=== PATIENT | male | born 1935 | race Caucasian/White ===

== ENCOUNTER 2017-02-25 13:04 | Inpatient (IN) | payer OTHER ==
[~2017-02-25] VITALS: Ht 170.2 cm; Wt 65.7 kg
[2017-02-25 13:42] LABS: HEMATOCRIT 43.1 % (38.0-50.0); MCH 29.2 PG (29.0-34.0); MCHC 32.9 G/DL (30.0-36.0); MCV 88.5 FL (86-99); MEAN PLAT.VOLUME 9.6 uM^3 (9.0-12.4); PLATELET COUNT 273 K/uL (156-360); RBC DIS.WIDTH-CV 14.9 % (11.8-14.6); RBC DIS.WIDTH-SD 48.2 % (39-53); RED BLOOD COUNT 4.87 M/uL (4.00-5.50); WHITE BLOOD COUNT 6.2 K/uL (4.1-10.2)
[2017-02-25 13:53] LABS: CHLORIDE 102 mEq/L (99-109); POTASSIUM 3.9 mEq/L (3.7-5.4); SODIUM 140 mEq/L (136-147)
[2017-02-25 13:55] LABS: GLUCOSE 117 mg/dL (70-99)
[2017-02-25 13:57] LABS: ANION GAP 11 MEQ/L (2-14)
[2017-02-25 13:59] LABS: GFR ESTIMATE (CALCULATED) 41 mL/min/
[2017-02-25 14:00] LABS: UREA NITROGEN (BUN) 33 mg/dL (9-23)
[2017-02-25 14:08] LABS: TROP-I INTERPRETATION POSITIVE
[2017-02-25 14:49] LABS: INTER. NORMALIZED RATIO 3.7; PROTHROMBIN TIME 39.3 (9.2-11.2)
[2017-02-25] MEDS ORDERED: LASIX40 MG PO (15:41)
[2017-02-25] MEDS ORDERED: CARVEDILOL12.5 MG PO (15:41)
[2017-02-25] MEDS ORDERED: WARFARIN SODIUM2 MG PO (15:41)
[2017-02-25] MEDS ORDERED: ISOSORBIDE MONO30 MG PO (15:42)
[2017-02-25] MEDS ORDERED: DIGOXIN125 MCG PO (15:42)
[2017-02-25] MEDS ORDERED: SPIRONOLACTONE25 MG PO (15:42)
[2017-02-25] MEDS ORDERED: ATORVASTATIN CA40 MG PO (15:42)
[2017-02-25] MEDS ORDERED: LO-DOSE ASPIRIN81 M1 PO (15:43)
[2017-02-25 16:12] LABS: HDL CHOLESTEROL 56 MG/DL (Desirable>=40); LDL CHOLESTEROL 55 mg/dL (Desirable<100); NON-HDL CHOLESTEROL 74 mg/dL (Desirable<160); TOTAL CHOLESTEROL 130 mg/dL (Desirable<200); TRIGLYCERIDES 97 MG/DL (Normal: <150)
[2017-02-25 17:22] VITALS: BP 135/79
[2017-02-25 19:50] LABS: ADD MIUA? NO; BILIRUBIN NEGATIVE; BLOOD NEGATIVE; COLOR YELLOW ((YELLOW)); GLUCOSE (STRIP) NEGATIVE; KETONES NEGATIVE; LEUKOCYTES NEGATIVE; NITRITE NEGATIVE; PROTEIN (STRIP) NEGATIVE; SPECIFIC GRAVITY 1.008 (1.000-1.030); UCUL ADDED? NO; UROBILINOGEN 0.2 MG/DL (0.2-1.0)
[2017-02-25 20:08] LABS: UR CREATININE CONCENTRATION 69.3 MG/DL
[2017-02-25 20:52] LABS: TROP-I INTERPRETATION POSITIVE
[2017-02-25 21:30] VITALS: BP 107/58
[2017-02-26] VITALS (7 sets, daily range): BP systolic 106–121; BP diastolic 61–75
[2017-02-26 01:43] LABS: TROP-I INTERPRETATION POSITIVE; TROPONIN-I 0.77 ng/mL (0.0-0.30)
[2017-02-26 05:34] LABS: INTER. NORMALIZED RATIO 3.6
[2017-02-26 05:52] LABS: HEMATOCRIT 39.9 % (38.0-50.0); MCH 29.5 PG (29.0-34.0); MCHC 33.1 G/DL (30.0-36.0); MCV 89.1 FL (86-99); MEAN PLAT.VOLUME 10.2 uM^3 (9.0-12.4); PLATELET COUNT 250 K/uL (156-360); RBC DIS.WIDTH-SD 48.6 % (39-53); RED BLOOD COUNT 4.48 M/uL (4.00-5.50); WHITE BLOOD COUNT 5.9 K/uL (4.1-10.2)
[2017-02-26 06:17] LABS: ANION GAP 11 MEQ/L (2-14); CHLORIDE 101 MEQ/L (99-109); GFR ESTIMATE (CALCULATED) 44 mL/min/; GLUCOSE 101 mg/dL (70-99); POTASSIUM 3.6 MEQ/L (3.7-5.4); SAMPLE HEMOLYSIS CHECK 0; SAMPLE ICTERIC CHECK 0; SAMPLE LIPEMIA CHECK 0; SODIUM 142 MEQ/L (136-147); UREA NITROGEN (BUN) 38 mg/dL (9-23)
[2017-02-27 04:10] VITALS: BP 123/71
[2017-02-27 05:50] LABS: EOSINOPHIL (%) 2.4 % (0-5); EOSINOPHIL COUNT 0.2 K/uL (0-0.3); HEMATOCRIT 43.1 % (38.0-50.0); IMMATURE GRANULOCYTE (%) 0.4 % (0.0-0.7); INSTRUMENT ABS NEUTROPHIL CT 4.7 K/uL; LYMPHOCYTE COUNT 1.3 K/uL (1.0-2.8); MCH 30.1 PG (29.0-34.0); MCHC 33.9 G/DL (30.0-36.0); MCV 88.9 FL (86-99); MEAN PLAT.VOLUME 10.4 uM^3 (9.0-12.4); MONOCYTE (%) 11.9 % (3-12); MONOCYTE COUNT 0.8 K/uL (0-0.8); NEUTROPHIL (%) 66.7 % (45-76); NEUTROPHIL COUNT 4.7 K/uL (1.8-6.4); PLATELET COUNT 280 K/uL (156-360); RBC DIS.WIDTH-CV 15.3 % (11.8-14.6); RBC DIS.WIDTH-SD 49.6 % (39-53); RED BLOOD COUNT 4.85 M/uL (4.00-5.50)
[2017-02-27 06:31] LABS: ANION GAP 11 MEQ/L (2-14); CHLORIDE 102 MEQ/L (99-109); GFR ESTIMATE (CALCULATED) 48 mL/min/; GLUCOSE 105 mg/dL (70-99); SAMPLE HEMOLYSIS CHECK 0; SAMPLE ICTERIC CHECK 0; SAMPLE LIPEMIA CHECK 0; SODIUM 142 MEQ/L (136-147); UREA NITROGEN (BUN) 41 mg/dL (9-23)
[2017-02-27 06:46] LABS: POTASSIUM 4.7 MEQ/L (3.7-5.4)
[2017-02-27 07:48] VITALS: BP 132/79
[2017-02-27 11:09] LABS: INTER. NORMALIZED RATIO 2.5; PROTHROMBIN TIME 26.3 (9.2-11.2)
[2017-02-27 11:32] VITALS: BP 121/78
[2017-02-27 15:45] VITALS: BP 113/74
[2017-02-27 19:52] VITALS: BP 109/66
[2017-02-27 20:08] LABS: UR CREATININE CONCENTRATION 122.7 MG/DL
[2017-02-28] VITALS (7 sets, daily range): BP systolic 90–131; BP diastolic 53–79
[2017-02-28 05:29] LABS: EOSINOPHIL (%) 4.1 % (0-5); EOSINOPHIL COUNT 0.2 K/uL (0-0.3); IMMATURE GRANULOCYTE (%) 0.4 % (0.0-0.7); INSTRUMENT ABS NEUTROPHIL CT 3.4 K/uL; LYMPHOCYTE COUNT 1.3 K/uL (1.0-2.8); MCH 28.7 PG (29.0-34.0); MCV 89.7 FL (86-99); MONOCYTE (%) 12.3 % (3-12); MONOCYTE COUNT 0.7 K/uL (0-0.8); NEUTROPHIL (%) 59.4 % (45-76); NEUTROPHIL COUNT 3.4 K/uL (1.8-6.4); PLATELET COUNT 237 K/uL (156-360); RBC DIS.WIDTH-CV 15.1 % (11.8-14.6); RBC DIS.WIDTH-SD 49.2 % (39-53); RED BLOOD COUNT 4.57 M/uL (4.00-5.50); WHITE BLOOD COUNT 5.7 K/uL (4.1-10.2)
[2017-02-28 05:45] LABS: INTER. NORMALIZED RATIO 2.1; PROTHROMBIN TIME 21.4 (9.2-11.2)
[2017-02-28 05:53] LABS: ANION GAP 9 MEQ/L (2-14); CHLORIDE 102 MEQ/L (99-109); GFR ESTIMATE (CALCULATED) 44 mL/min/; GLUCOSE 89 mg/dL (70-99); POTASSIUM 4.2 MEQ/L (3.7-5.4); SAMPLE HEMOLYSIS CHECK 0; SAMPLE ICTERIC CHECK 0; SAMPLE LIPEMIA CHECK 0; SODIUM 141 MEQ/L (136-147); UREA NITROGEN (BUN) 42 mg/dL (9-23)
[2017-03-01 04:53] VITALS: BP 107/72
[2017-03-01 05:26] LABS: BASOPHIL COUNT 0.1 K/uL (0-0.1); EOSINOPHIL (%) 3.1 % (0-5); EOSINOPHIL COUNT 0.2 K/uL (0-0.3); HEMATOCRIT 42.5 % (38.0-50.0); IMMATURE GRANULOCYTE (%) 0.6 % (0.0-0.7); INSTRUMENT ABS NEUTROPHIL CT 4.5 K/uL; LYMPHOCYTE COUNT 1.3 K/uL (1.0-2.8); MCH 30.1 PG (29.0-34.0); MCHC 33.2 G/DL (30.0-36.0); MCV 90.6 FL (86-99); MEAN PLAT.VOLUME 10.3 uM^3 (9.0-12.4); MONOCYTE (%) 11.5 % (3-12); MONOCYTE COUNT 0.8 K/uL (0-0.8); NEUTROPHIL (%) 65.9 % (45-76); NEUTROPHIL COUNT 4.5 K/uL (1.8-6.4); PLATELET COUNT 260 K/uL (156-360); RBC DIS.WIDTH-CV 15.6 % (11.8-14.6); RBC DIS.WIDTH-SD 50.3 % (39-53); RED BLOOD COUNT 4.69 M/uL (4.00-5.50); WHITE BLOOD COUNT 6.9 K/uL (4.1-10.2)
[2017-03-01 05:56] LABS: ANION GAP 8 MEQ/L (2-14); CHLORIDE 101 MEQ/L (99-109); GFR ESTIMATE (CALCULATED) 36 mL/min/; GLUCOSE 89 mg/dL (70-99); POTASSIUM 4.7 MEQ/L (3.7-5.4); SAMPLE HEMOLYSIS CHECK 0; SAMPLE ICTERIC CHECK 0; SAMPLE LIPEMIA CHECK 0; SODIUM 140 MEQ/L (136-147); UREA NITROGEN (BUN) 46 mg/dL (9-23); URIC ACID 11.2 mg/dL (3.1-9.2)
[2017-03-01 05:57] LABS: ANION GAP 8 MEQ/L (2-14); CHLORIDE 101 MEQ/L (99-109); GFR ESTIMATE (CALCULATED) 39 mL/min/; GLUCOSE 88 mg/dL (70-99); POTASSIUM 4.7 MEQ/L (3.7-5.4); SAMPLE HEMOLYSIS CHECK 0; SAMPLE ICTERIC CHECK 0; SAMPLE LIPEMIA CHECK 0; SODIUM 141 MEQ/L (136-147); UREA NITROGEN (BUN) 45 mg/dL (9-23)
[2017-03-01 07:57] VITALS: BP 108/65
[2017-03-01 08:15] LABS: INTACT PARATHYROID HORMONE 114 pg/mL (10-69)
[2017-03-01 11:28] LABS: INTER. NORMALIZED RATIO 2.1; PROTHROMBIN TIME 21.7 (9.2-11.2)
[2017-03-01 11:42] VITALS: BP 96/53
[2017-03-01] MEDS ORDERED: LISINOPRIL2.5 MG PO (12:53)
[2017-03-01] MEDS ORDERED: CALCITRIOL0.25 MCG PO (12:53)
[2017-03-01] MEDS ORDERED: FUROSEMIDE80 MG PO (12:53)
[2017-03-01] MEDS ORDERED: FUROSEMIDE40 MG PO (13:12)
== END 2017-03-01 15:56 | disposition home health service (06) | DRG 281 ==
LOC: EME 13:04 → 4EAST 15:30 → EDOF 15:30 → 4EAST 17:09
PROVIDERS: Emergency Medicine; Internal Medicine; Internal Medicine Nephrology
DX: I50.23 Acute on chronic systolic (congestive) heart failure (principal); N17.9 Acute kidney failure, unspecified; N18.3 Chronic kidney disease, stage 3 (moderate); I13.0 Hypertensive heart and chronic kidney disease with heart failure and stage 1 through stage 4 chronic kidney disease, or unspecified chronic kidney disease; I25.5 Ischemic cardiomyopathy; I48.91 Unspecified atrial fibrillation; I25.10 Atherosclerotic heart disease of native coronary artery without angina pectoris; I49.5 Sick sinus syndrome; E87.6 Hypokalemia; E78.5 Hyperlipidemia, unspecified; Z79.01 Long term (current) use of anticoagulants; Z79.82 Long term (current) use of aspirin; Z87.891 Personal history of nicotine dependence; Z95.1 Presence of aortocoronary bypass graft; Z95.810 Presence of automatic (implantable) cardiac defibrillator; I21.4 Non-ST elevation (NSTEMI) myocardial infarction
CPT/HCPCS: 36415; 71020; 76770; 80048; 80048 91; 80061; 80069; 81003; 82306; 82436; 82570; 83880; 83970; 84133; 84156; 84300; 84484; 84550; 85025; 85027; 85610; 85730; 93005; 99281; 99285; G0378; G8978 GP CI; G8979 GP CH; J1940; J2405

== ENCOUNTER 2017-03-26 09:00 | Inpatient (IN) | payer OTHER ==
[~2017-03-26] VITALS: Ht 167.6 cm; Wt 66.1 kg
[~2017-03-26 09:00] MED LIST: ATORVASTATIN CA40 MG PO; CALCITRIOL0.25 MCG PO; CARVEDILOL12.5 MG PO; DIGOXIN125 MCG PO; FUROSEMIDE40 MG PO; FUROSEMIDE80 MG PO; ISOSORBIDE MONO30 MG PO; LASIX40 MG PO; LISINOPRIL2.5 MG PO; LO-DOSE ASPIRIN81 M1 PO; SPIRONOLACTONE25 MG PO; WARFARIN SODIUM2 MG PO
[2017-03-26 10:20] LABS: EOSINOPHIL (%) 0.3 % (0-5); HEMATOCRIT 45.1 % (38.0-50.0); IMMATURE GRANULOCYTE (%) 0.7 % (0.0-0.7); INSTRUMENT ABS NEUTROPHIL CT 4.3 K/uL; LYMPHOCYTE COUNT 0.8 K/uL (1.0-2.8); MCH 28.7 PG (29.0-34.0); MONOCYTE (%) 10.6 % (3-12); MONOCYTE COUNT 0.6 K/uL (0-0.8); NEUTROPHIL COUNT 4.3 K/uL (1.8-6.4); PLATELET COUNT 294 K/uL (156-360); RBC DIS.WIDTH-CV 16.4 % (11.8-14.6); RBC DIS.WIDTH-SD 51.1 % (39-53); WHITE BLOOD COUNT 5.8 K/uL (4.1-10.2)
[2017-03-26 10:26] LABS: MCV 86.7 FL (86-99)
[2017-03-26 10:28] LABS: PTT 43.2 SEC (25-37)
[2017-03-26 10:30] LABS: CHLORIDE 100 mEq/L (99-109); SODIUM 139 mEq/L (136-147)
[2017-03-26 10:32] LABS: GLUCOSE 143 mg/dL (70-99)
[2017-03-26 10:33] LABS: ANION GAP 14 MEQ/L (2-14)
[2017-03-26 10:34] LABS: INTER. NORMALIZED RATIO 5.2; PROTHROMBIN TIME 61.3 SEC (10.2-12.9)
[2017-03-26 10:36] LABS: GFR ESTIMATE (CALCULATED) 32 mL/min/
[2017-03-26 10:37] LABS: UREA NITROGEN (BUN) 50 mg/dL (9-23)
[2017-03-26 10:41] LABS: TROP-I INTERPRETATION NEGATIVE; TROPONIN-I 0.13 ng/mL (0.0-0.30)
[2017-03-26] MEDS ORDERED: COUMADIN5 MG PO (11:57)
[2017-03-26] MEDS ORDERED: DAILY VITE1 EAC1 PO (11:59)
[2017-03-26 13:44] VITALS: BP 108/68
[2017-03-26 18:41] LABS: TROP-I INTERPRETATION NEGATIVE; TROPONIN-I 0.26 ng/mL (0.0-0.30)
[2017-03-26 19:48] VITALS: BP 98/64
[2017-03-27 00:58] VITALS: BP 121/57
[2017-03-27 02:53] LABS: TROP-I INTERPRETATION NEGATIVE
[2017-03-27 03:48] VITALS: BP 113/51
[2017-03-27 06:36] LABS: HEMATOCRIT 46.7 % (38.0-50.0); MCH 28.4 PG (29.0-34.0); MCHC 32.3 G/DL (30.0-36.0); MCV 87.9 FL (86-99); MEAN PLAT.VOLUME 9.7 uM^3 (9.0-12.4); PLATELET COUNT 327 K/uL (156-360); RBC DIS.WIDTH-CV 17.1 % (11.8-14.6); RBC DIS.WIDTH-SD 53.4 % (39-53); RED BLOOD COUNT 5.31 M/uL (4.00-5.50)
[2017-03-27 06:55] LABS: PROTHROMBIN TIME 56.6 SEC (10.2-12.9)
[2017-03-27 07:00] LABS: ALKALINE PHOSPHATASE 72 IU/L (3-129); ANION GAP 13 MEQ/L (2-14); CHLORIDE 101 MEQ/L (99-109); GFR ESTIMATE (CALCULATED) 29 mL/min/; GLUCOSE 112 mg/dL (70-99); MAGNESIUM 2.7 mg/dl (1.3-2.7); SAMPLE HEMOLYSIS CHECK 1; SAMPLE ICTERIC CHECK 0; SAMPLE LIPEMIA CHECK 0; SODIUM 139 MEQ/L (136-147); TOTAL BILIRUBIN 1.4 MG/DL (0.0-1.0); UREA NITROGEN (BUN) 56 mg/dL (9-23)
[2017-03-27 07:01] LABS: INTER. NORMALIZED RATIO 4.8
[2017-03-27 08:01] VITALS: BP 106/63
[2017-03-27 11:12] VITALS: BP 104/61
[2017-03-27 16:01] VITALS: BP 104/67
[2017-03-27 18:42] LABS: ANION GAP 10 MEQ/L (2-14); CHLORIDE 99 MEQ/L (99-109); GFR ESTIMATE (CALCULATED) 28 mL/min/; GLUCOSE 145 mg/dL (70-99); POTASSIUM 4.4 MEQ/L (3.7-5.4); SAMPLE HEMOLYSIS CHECK 0; SAMPLE ICTERIC CHECK 0; SAMPLE LIPEMIA CHECK 0; SODIUM 136 MEQ/L (136-147); UREA NITROGEN (BUN) 58 mg/dL (9-23)
[2017-03-27 19:39] VITALS: BP 113/61
[2017-03-28 00:23] VITALS: BP 107/65
[2017-03-28 03:53] VITALS: BP 102/59
[2017-03-28 07:01] LABS: ANION GAP 11 MEQ/L (2-14); CHLORIDE 99 MEQ/L (99-109); GFR ESTIMATE (CALCULATED) 28 mL/min/; SAMPLE HEMOLYSIS CHECK 1; SAMPLE ICTERIC CHECK 0; SAMPLE LIPEMIA CHECK 0; SODIUM 137 MEQ/L (136-147); UREA NITROGEN (BUN) 62 mg/dL (9-23)
[2017-03-28 07:07] LABS: GLUCOSE 90 mg/dL (70-99)
[2017-03-28 07:14] LABS: INTER. NORMALIZED RATIO 3.5; PROTHROMBIN TIME 40.8 SEC (10.2-12.9)
[2017-03-28 07:17] VITALS: BP 113/71
[2017-03-28 11:13] VITALS: BP 107/69
[2017-03-28 15:17] VITALS: BP 116/78
[2017-03-28 20:37] VITALS: BP 118/78
[2017-03-29] VITALS (13 sets, daily range): BP systolic 108–138; BP diastolic 60–81
[2017-03-29 06:51] LABS: INTER. NORMALIZED RATIO 3.1; PROTHROMBIN TIME 35.6 SEC (10.2-12.9)
[2017-03-29 06:53] LABS: HEMATOCRIT 48.1 % (38.0-50.0); MCH 28.5 PG (29.0-34.0); MCHC 32.2 G/DL (30.0-36.0); MCV 88.6 FL (86-99); MEAN PLAT.VOLUME 9.9 uM^3 (9.0-12.4); PLATELET COUNT 345 K/uL (156-360); RBC DIS.WIDTH-CV 16.9 % (11.8-14.6); RBC DIS.WIDTH-SD 53.9 % (39-53); RED BLOOD COUNT 5.43 M/uL (4.00-5.50); WHITE BLOOD COUNT 9.1 K/uL (4.1-10.2)
[2017-03-29 07:10] LABS: ANION GAP 13 MEQ/L (2-14); CHLORIDE 97 MEQ/L (99-109); GFR ESTIMATE (CALCULATED) 28 mL/min/; GLUCOSE 99 mg/dL (70-99); MAGNESIUM 2.9 mg/dl (1.3-2.7); POTASSIUM 5.3 MEQ/L (3.7-5.4); SAMPLE HEMOLYSIS CHECK 1; SAMPLE ICTERIC CHECK 0; SAMPLE LIPEMIA CHECK 0; SODIUM 135 MEQ/L (136-147); UREA NITROGEN (BUN) 64 mg/dL (9-23)
[2017-03-29 11:39] LABS: DIGOXIN 2.5 ng/mL (0.8-2.0)
[2017-03-29 15:44] LABS: METH RESISTANT S AUREUS PCR NEGATIVE (NEGATIVE)
[2017-03-29 15:53] LABS: PROBE CHECK PASS; SPECIMEN PROCESSING CONTROL PASS
[2017-03-29 20:25] LABS: ANION GAP 10 MEQ/L (2-14); CHLORIDE 96 MEQ/L (99-109); GFR ESTIMATE (CALCULATED) 29 mL/min/; GLUCOSE 126 mg/dL (70-99); POTASSIUM 4.9 MEQ/L (3.7-5.4); SAMPLE HEMOLYSIS CHECK 0; SAMPLE ICTERIC CHECK 0; SAMPLE LIPEMIA CHECK 0; SODIUM 134 MEQ/L (136-147); UREA NITROGEN (BUN) 65 mg/dL (9-23)
[2017-03-30] VITALS (24 sets, daily range): BP systolic 104–142; BP diastolic 46–91
[2017-03-30 05:07] LABS: HEMATOCRIT 43.1 % (38.0-50.0); MCH 28.9 PG (29.0-34.0); MCHC 33.6 G/DL (30.0-36.0); MEAN PLAT.VOLUME 9.5 uM^3 (9.0-12.4); PLATELET COUNT 316 K/uL (156-360); RBC DIS.WIDTH-CV 16.3 % (11.8-14.6); RBC DIS.WIDTH-SD 49.9 % (39-53); RED BLOOD COUNT 5.01 M/uL (4.00-5.50)
[2017-03-30 05:21] LABS: CHLORIDE 97 mEq/L (99-109); POTASSIUM 4.5 mEq/L (3.7-5.4); SODIUM 136 mEq/L (136-147)
[2017-03-30 05:22] LABS: MAGNESIUM 2.7 mg/dL (1.3-2.7)
[2017-03-30 05:24] LABS: GLUCOSE 106 mg/dL (70-99)
[2017-03-30 05:25] LABS: ANION GAP 11 MEQ/L (2-14)
[2017-03-30 05:27] LABS: GFR ESTIMATE (CALCULATED) 29 mL/min/
[2017-03-30 05:28] LABS: UREA NITROGEN (BUN) 69 mg/dL (9-23)
[2017-03-30 05:29] LABS: INTER. NORMALIZED RATIO 2.6; PROTHROMBIN TIME 29.9 SEC (10.2-12.9)
[2017-03-30 18:04] LABS: ANION GAP 10 MEQ/L (2-14); CHLORIDE 93 MEQ/L (99-109); GFR ESTIMATE (CALCULATED) 32 mL/min/; GLUCOSE 107 mg/dL (70-99); POTASSIUM 3.7 MEQ/L (3.7-5.4); SAMPLE HEMOLYSIS CHECK 0; SAMPLE ICTERIC CHECK 0; SAMPLE LIPEMIA CHECK 0; SODIUM 133 MEQ/L (136-147); UREA NITROGEN (BUN) 64 mg/dL (9-23)
[2017-03-31] VITALS (24 sets, daily range): BP systolic 93–130; BP diastolic 51–74
[2017-03-31 04:48] LABS: CHLORIDE 92 mEq/L (99-109); POTASSIUM 3.4 mEq/L (3.7-5.4); SODIUM 135 mEq/L (136-147)
[2017-03-31 04:51] LABS: GLUCOSE 96 mg/dL (70-99)
[2017-03-31 04:52] LABS: ANION GAP 13 MEQ/L (2-14)
[2017-03-31 04:54] LABS: GFR ESTIMATE (CALCULATED) 32 mL/min/
[2017-03-31 04:55] LABS: UREA NITROGEN (BUN) 68 mg/dL (9-23)
[2017-03-31 04:59] LABS: MAGNESIUM 2.2 mg/dL (1.3-2.7)
[2017-03-31 06:01] LABS: PROTHROMBIN TIME 33.9 SEC (10.2-12.9)
[2017-03-31 16:41] LABS: ANION GAP 11 MEQ/L (2-14); CHLORIDE 92 MEQ/L (99-109); GFR ESTIMATE (CALCULATED) 34 mL/min/; POTASSIUM 3.3 MEQ/L (3.7-5.4); SAMPLE HEMOLYSIS CHECK 0; SAMPLE ICTERIC CHECK 0; SAMPLE LIPEMIA CHECK 0; SODIUM 134 MEQ/L (136-147); UREA NITROGEN (BUN) 57 mg/dL (9-23)
[2017-03-31 16:42] LABS: GLUCOSE 145 mg/dL (70-99)
[2017-04-01] VITALS (19 sets, daily range): BP systolic 93–131; BP diastolic 55–76
[2017-04-01 06:04] LABS: INTER. NORMALIZED RATIO 2.1
[2017-04-01 06:45] LABS: ALKALINE PHOSPHATASE 96 IU/L (3-129); ANION GAP 9 MEQ/L (2-14); CHLORIDE 90 MEQ/L (99-109); DIRECT BILIRUBIN 0.7 mg/dL (0.0-0.3); GFR ESTIMATE (CALCULATED) 36 mL/min/; GLUCOSE 114 mg/dL (70-99); MAGNESIUM 2.5 mg/dl (1.3-2.7); POTASSIUM 3.7 MEQ/L (3.7-5.4); SAMPLE HEMOLYSIS CHECK 0; SAMPLE ICTERIC CHECK 0; SAMPLE LIPEMIA CHECK 0; SODIUM 132 MEQ/L (136-147); UREA NITROGEN (BUN) 60 mg/dL (9-23)
[2017-04-01 06:54] LABS: TOTAL BILIRUBIN 1.9 MG/DL (0.0-1.0)
[2017-04-01 19:01] LABS: ADD MIUA? YES; BILIRUBIN NEGATIVE; BLOOD LARGE; COLOR YELLOW ((YELLOW)); GLUCOSE (STRIP) NEGATIVE; KETONES NEGATIVE; LEUKOCYTES LARGE; NITRITE NEGATIVE; PROTEIN (STRIP) 100; SPECIFIC GRAVITY 1.009 (1.000-1.030); UROBILINOGEN 0.2 MG/DL (0.2-1.0)
[2017-04-01 19:11] LABS: RED BLOOD CELLS TNTC /HPF (0-5); WHITE BLOOD CELLS TNTC /HPF (0-5)
[2017-04-01 19:12] LABS: BACTERIA 2+ /HPF; EPITHELIAL CELLS RARE /HPF; MUCUS 1+ /LPF; UCUL ADDED? YES
[2017-04-02] VITALS (7 sets, daily range): BP systolic 101–138; BP diastolic 58–78
[2017-04-02 05:59] LABS: INTER. NORMALIZED RATIO 1.8; PROTHROMBIN TIME 20.2 SEC (10.2-12.9)
[2017-04-02 06:38] LABS: ANION GAP 13 MEQ/L (2-14); CHLORIDE 92 MEQ/L (99-109); GFR ESTIMATE (CALCULATED) 41 mL/min/; GLUCOSE 93 mg/dL (70-99); SAMPLE HEMOLYSIS CHECK 0; SAMPLE ICTERIC CHECK 0; SAMPLE LIPEMIA CHECK 0; SODIUM 135 MEQ/L (136-147); UREA NITROGEN (BUN) 54 mg/dL (9-23)
[2017-04-02 08:33] LABS: HEMATOCRIT 40.4 % (38.0-50.0); MCH 29.1 PG (29.0-34.0); MCHC 33.7 G/DL (30.0-36.0); MCV 86.3 FL (86-99); MEAN PLAT.VOLUME 9.7 uM^3 (9.0-12.4); PLATELET COUNT 270 K/uL (156-360); RBC DIS.WIDTH-CV 16.6 % (11.8-14.6); RBC DIS.WIDTH-SD 51.5 % (39-53); RED BLOOD COUNT 4.68 M/uL (4.00-5.50); WHITE BLOOD COUNT 8.2 K/uL (4.1-10.2)
[2017-04-02 23:30] LABS: TROP-I INTERPRETATION NEGATIVE; TROPONIN-I 0.24 ng/mL (0.0-0.30)
[2017-04-03] VITALS (14 sets, daily range): BP systolic 109–133; BP diastolic 66–92
[2017-04-03 02:59] LABS: HEMATOCRIT 40.4 % (38.0-50.0); MCH 28.6 PG (29.0-34.0); MCHC 33.9 G/DL (30.0-36.0); MCV 84.3 FL (86-99); MEAN PLAT.VOLUME 9.7 uM^3 (9.0-12.4); PLATELET COUNT 275 K/uL (156-360); RBC DIS.WIDTH-CV 16.4 % (11.8-14.6); RBC DIS.WIDTH-SD 50.3 % (39-53); RED BLOOD COUNT 4.79 M/uL (4.00-5.50); WHITE BLOOD COUNT 11.5 K/uL (4.1-10.2)
[2017-04-03 03:03] LABS: INTER. NORMALIZED RATIO 1.9; PROTHROMBIN TIME 21.1 SEC (10.2-12.9)
[2017-04-03 03:13] LABS: CHLORIDE 91 mEq/L (99-109); POTASSIUM 4.3 mEq/L (3.7-5.4); SODIUM 131 mEq/L (136-147)
[2017-04-03 03:15] LABS: GLUCOSE 132 mg/dL (70-99)
[2017-04-03 03:16] LABS: ANION GAP 12 MEQ/L (2-14)
[2017-04-03 03:19] LABS: GFR ESTIMATE (CALCULATED) 34 mL/min/
[2017-04-03 03:20] LABS: UREA NITROGEN (BUN) 66 mg/dL (9-23)
[2017-04-04] VITALS (13 sets, daily range): BP systolic 116–134; BP diastolic 65–77
[2017-04-04 04:47] LABS: HEMATOCRIT 35.9 % (38.0-50.0); MCH 29.1 PG (29.0-34.0); MCHC 34.5 G/DL (30.0-36.0); MCV 84.3 FL (86-99); MEAN PLAT.VOLUME 10.2 uM^3 (9.0-12.4); PLATELET COUNT 254 K/uL (156-360); RBC DIS.WIDTH-CV 16.3 % (11.8-14.6); RBC DIS.WIDTH-SD 49.8 % (39-53); RED BLOOD COUNT 4.26 M/uL (4.00-5.50); WHITE BLOOD COUNT 9.3 K/uL (4.1-10.2)
[2017-04-04 04:56] LABS: CHLORIDE 90 mEq/L (99-109); POTASSIUM 3.7 mEq/L (3.7-5.4); SODIUM 132 mEq/L (136-147)
[2017-04-04 04:58] LABS: GLUCOSE 125 mg/dL (70-99)
[2017-04-04 04:59] LABS: ANION GAP 11 MEQ/L (2-14)
[2017-04-04 05:02] LABS: GFR ESTIMATE (CALCULATED) 31 mL/min/
[2017-04-04 05:03] LABS: UREA NITROGEN (BUN) 71 mg/dL (9-23)
[2017-04-04 09:26] LABS: INTER. NORMALIZED RATIO 2.2
[2017-04-04 16:30] LABS: ADD MIUA? YES; BILIRUBIN NEGATIVE; BLOOD SMALL; COLOR YELLOW ((YELLOW)); GLUCOSE (STRIP) NEGATIVE; KETONES NEGATIVE; LEUKOCYTES SMALL; NITRITE NEGATIVE; PROTEIN (STRIP) NEGATIVE; SPECIFIC GRAVITY 1.011 (1.000-1.030); UROBILINOGEN 0.2 MG/DL (0.2-1.0)
[2017-04-04 16:41] LABS: BACTERIA NONE SEEN /HPF; EPITHELIAL CELLS RARE /HPF; HYALINE CASTS 20-30 /LPF; MUCUS TRACE /LPF; RED BLOOD CELLS 0-5 /HPF (0-5); UCUL ADDED? YES; WHITE BLOOD CELLS CLUMP RARE /HPF (0-5)
[2017-04-05] VITALS: BP 131/76
[2017-04-05 04:00] VITALS: BP 116/63
[2017-04-05 08:00] VITALS: BP 124/74
[2017-04-05 08:03] LABS: INTER. NORMALIZED RATIO 2.7
[2017-04-05 08:20] LABS: ANION GAP 13 MEQ/L (2-14); CHLORIDE 90 MEQ/L (99-109); GFR ESTIMATE (CALCULATED) 31 mL/min/; GLUCOSE 128 mg/dL (70-99); POTASSIUM 3.3 MEQ/L (3.7-5.4); SAMPLE HEMOLYSIS CHECK 0; SAMPLE ICTERIC CHECK 0; SAMPLE LIPEMIA CHECK 0; SODIUM 133 MEQ/L (136-147); UREA NITROGEN (BUN) 74 mg/dL (9-23)
[2017-04-05 12:00] VITALS: BP 99/53
[2017-04-05 12:42] LABS: MAGNESIUM 2.7 mg/dl (1.3-2.7)
[2017-04-05 16:00] VITALS: BP 132/74
[2017-04-05 16:22] LABS: ANION GAP 13 MEQ/L (2-14); CHLORIDE 87 MEQ/L (99-109); GFR ESTIMATE (CALCULATED) 34 mL/min/; GLUCOSE 159 mg/dL (70-99); POTASSIUM 3.9 MEQ/L (3.7-5.4); SAMPLE HEMOLYSIS CHECK 0; SAMPLE ICTERIC CHECK 0; SAMPLE LIPEMIA CHECK 0; SODIUM 133 MEQ/L (136-147); UREA NITROGEN (BUN) 76 mg/dL (9-23)
[2017-04-05 20:00] VITALS: BP 124/70
[2017-04-06] VITALS: BP 119/69
[2017-04-06 04:00] VITALS: BP 117/75
[2017-04-06 05:35] LABS: INTER. NORMALIZED RATIO 3.4; PROTHROMBIN TIME 39.4 SEC (10.2-12.9)
[2017-04-06 05:47] LABS: ANION GAP 11 MEQ/L (2-14); CHLORIDE 88 MEQ/L (99-109); GFR ESTIMATE (CALCULATED) 36 mL/min/; GLUCOSE 134 mg/dL (70-99); POTASSIUM 3.7 MEQ/L (3.7-5.4); SAMPLE HEMOLYSIS CHECK 0; SAMPLE ICTERIC CHECK 0; SAMPLE LIPEMIA CHECK 0; SODIUM 133 MEQ/L (136-147); UREA NITROGEN (BUN) 74 mg/dL (9-23)
[2017-04-06 08:00] VITALS: BP 125/66
[2017-04-06 12:00] VITALS: BP 123/70
[2017-04-06 16:00] VITALS: BP 117/64
[2017-04-06 20:00] VITALS: BP 123/80
[2017-04-07] VITALS: BP 112/75
[2017-04-07 04:00] VITALS: BP 120/76
[2017-04-07 05:58] LABS: INTER. NORMALIZED RATIO 3.3; PROTHROMBIN TIME 37.7 SEC (10.2-12.9)
[2017-04-07 08:00] VITALS: BP 114/61
[2017-04-07 11:15] LABS: ANION GAP 11 MEQ/L (2-14); CHLORIDE 84 MEQ/L (99-109); GFR ESTIMATE (CALCULATED) 38 mL/min/; GLUCOSE 175 mg/dL (70-99); POTASSIUM 3.1 MEQ/L (3.7-5.4); SAMPLE HEMOLYSIS CHECK 0; SAMPLE ICTERIC CHECK 0; SAMPLE LIPEMIA CHECK 0; SODIUM 132 MEQ/L (136-147); UREA NITROGEN (BUN) 72 mg/dL (9-23)
[2017-04-07 12:00] VITALS: BP 116/79
[2017-04-07 16:00] VITALS: BP 115/62
[2017-04-08 06:54] LABS: INTER. NORMALIZED RATIO 2.9
[2017-04-08 07:22] LABS: ANION GAP 12 MEQ/L (2-14); CHLORIDE 85 MEQ/L (99-109); GFR ESTIMATE (CALCULATED) 31 mL/min/; SAMPLE HEMOLYSIS CHECK 0; SAMPLE ICTERIC CHECK 0; SAMPLE LIPEMIA CHECK 0; SODIUM 135 MEQ/L (136-147); UREA NITROGEN (BUN) 76 mg/dL (9-23)
[2017-04-08 07:24] LABS: GLUCOSE 108 mg/dL (70-99); POTASSIUM 4.1 MEQ/L (3.7-5.4)
[2017-04-08 08:44] LABS: HEMATOCRIT 41.7 % (38.0-50.0); MCH 28.2 PG (29.0-34.0); MCHC 32.6 G/DL (30.0-36.0); MCV 86.3 FL (86-99); MEAN PLAT.VOLUME 10.1 uM^3 (9.0-12.4); RBC DIS.WIDTH-CV 16.4 % (11.8-14.6); RBC DIS.WIDTH-SD 51.4 % (39-53); RED BLOOD COUNT 4.83 M/uL (4.00-5.50); WHITE BLOOD COUNT 8.8 K/uL (4.1-10.2)
[2017-04-08 08:45] LABS: PLATELET COUNT 351 K/uL (156-360)
[2017-04-09 06:37] LABS: INTER. NORMALIZED RATIO 2.9
[2017-04-09 08:23] LABS: MCH 29.5 PG (29.0-34.0); MCHC 34.5 G/DL (30.0-36.0); MCV 85.5 FL (86-99); MEAN PLAT.VOLUME 9.8 uM^3 (9.0-12.4); PLATELET COUNT 394 K/uL (156-360); RBC DIS.WIDTH-CV 16.6 % (11.8-14.6); RBC DIS.WIDTH-SD 51.1 % (39-53); RED BLOOD COUNT 4.68 M/uL (4.00-5.50); WHITE BLOOD COUNT 8.8 K/uL (4.1-10.2)
[2017-04-09 08:50] LABS: ANION GAP 11 MEQ/L (2-14); CHLORIDE 87 MEQ/L (99-109); GFR ESTIMATE (CALCULATED) 28 mL/min/; GLUCOSE 96 mg/dL (70-99); POTASSIUM 4.3 MEQ/L (3.7-5.4); SAMPLE HEMOLYSIS CHECK 0; SAMPLE ICTERIC CHECK 0; SAMPLE LIPEMIA CHECK 0; SODIUM 133 MEQ/L (136-147); UREA NITROGEN (BUN) 89 mg/dL (9-23)
[2017-04-10 06:36] LABS: INTER. NORMALIZED RATIO 3.2; PROTHROMBIN TIME 37.4 SEC (10.2-12.9)
[2017-04-10] MEDS ORDERED: MORPHINE SULFATE PO (14:43)
[2017-04-10] MEDS ORDERED: METOLAZONE5 MG PO (15:41)
[2017-04-10] MEDS ORDERED: FUROSEMIDE80 MG PO (15:41)
[2017-04-10] MEDS ORDERED: ATIVAN INTE2 MG/1 ML PO (16:05)
[2017-04-10] MEDS ORDERED: K-DUR20 MEQ PO (16:09)
== END 2017-04-10 17:27 | DRG 291 ==
LOC: EME 09:00 → 4WEST 12:10 → EDOF 12:10 → 3EAST 12:10 → 4EAST 12:10 → ENRESERV 12:11 → EDOF 12:28 → ENRESERV 12:45 → 3EAST 13:33 → ENRESERV 03-29 12:27 → CANRESERV 03-29 12:29 → ENRESERV 03-29 12:29 → 3EAST 03-29 12:49 → ENRESERV 03-29 12:50 → 4WEST 03-29 13:25 → ENRESERV 04-01 16:29 → 4EAST 04-01 18:12 → ENRESERV 04-03 11:40 → 4WEST 04-03 12:02 → ENRESERV 04-07 17:43 → 5EAST 04-07 19:51
PROVIDERS: Emergency Medicine; Hospitalist; Internal Medicine; Internal Medicine Cardiovascular Disease; Internal Medicine Critical Care Medicine; Physician Assistant
DX: I13.0 Hypertensive heart and chronic kidney disease with heart failure and stage 1 through stage 4 chronic kidney disease, or unspecified chronic kidney disease (principal); I50.23 Acute on chronic systolic (congestive) heart failure; R57.0 Cardiogenic shock; N17.9 Acute kidney failure, unspecified; N25.81 Secondary hyperparathyroidism of renal origin; N39.0 Urinary tract infection, site not specified; Z66 Do not resuscitate; J98.11 Atelectasis; I48.1 Persistent atrial fibrillation; J90 Pleural effusion, not elsewhere classified; E87.1 Hypo-osmolality and hyponatremia; Z51.5 Encounter for palliative care; I25.5 Ischemic cardiomyopathy; I25.10 Atherosclerotic heart disease of native coronary artery without angina pectoris; I34.0 Nonrheumatic mitral (valve) insufficiency; N18.3 Chronic kidney disease, stage 3 (moderate); B96.20 Unspecified Escherichia coli [E. coli] as the cause of diseases classified elsewhere; B96.1 Klebsiella pneumoniae [K. pneumoniae] as the cause of diseases classified elsewhere; I35.1 Nonrheumatic aortic (valve) insufficiency; N48.89 Other specified disorders of penis; I36.1 Nonrheumatic tricuspid (valve) insufficiency; E78.5 Hyperlipidemia, unspecified; E83.39 Other disorders of phosphorus metabolism; E83.41 Hypermagnesemia; E87.5 Hyperkalemia; E87.6 Hypokalemia; R79.1 Abnormal coagulation profile; T45.515A Adverse effect of anticoagulants, initial encounter; T50.2X5A Adverse effect of carbonic-anhydrase inhibitors, benzothiadiazides and other diuretics, initial encounter; Z95.1 Presence of aortocoronary bypass graft; Z95.810 Presence of automatic (implantable) cardiac defibrillator; Z87.891 Personal history of nicotine dependence; Z79.82 Long term (current) use of aspirin; Z79.01 Long term (current) use of anticoagulants
CPT/HCPCS: 70450; 71010; 71250; 80048; 80048 91; 80053; 80069; 80076; 80162; 81003; 83605; 83735; 83880; 84100; 84484; 85025; 85027; 85610; 85730; 87040; 87077; 87086; 87186; 87641; 93005; 93306; 93971; 94640; 94640 76; 94799; 99202; 99281; 99285; J0696; J1940; J2060; J2260; J2270; J2405; J7050; J7060